=== PATIENT | female | born 1980 | race Hispanic/Latino ===

== ENCOUNTER 2017-10-30 02:43 | Inpatient (IN) | payer MEDICAID, OTHER ==
[~2017-10-30] VITALS: Ht 152.4 cm; Wt 68.0 kg
[2017-10-30] MEDS ORDERED: ACETAMINOPHEN EXTRA STRENGTH 500 MG TABLET ONE (02:55)
[2017-10-30 03:10] LABS: RAPID GROUP A STREP NEGATIVE (NEGATIVE)
[2017-10-30 03:11] LABS: BASOPHILS % (AUTO) 0.2 % (0.0-5.0); HEMATOCRIT 35.3 % (36-48); LYMPHOCYTES % (AUTO) 4.2 % (21.0-51.0); MEAN CORPUSCULAR HEMOGLOBIN 30.2 pg (27.0-33.0); MEAN CORPUSCULAR HGB CONC 34.8 g/dL (32.0-36.0); MEAN CORPUSCULAR VOLUME 86.9 fL (79-99); NEUTROPHILS % (AUTO) 90.6 % (40.0-77.0); PLATELET COUNT (AUTO) 242 K/uL (130-400); RED BLOOD CELL COUNT(AUTO) 4.06 MIL/uL (4.00-5.50); RED CELL DISTRIBUTION WIDTH 13.8 % (11.0-15.5); WHITE BLOOD COUNT (AUTO) 21.8 K/uL (4.8-10.8)
[2017-10-30] MEDS ORDERED: ISOVUE-370 50ML VIAL IV ONE (03:17)
[2017-10-30 03:19] LABS: CREATININE 0.6 mg/dL (0.5-1.5)
[2017-10-30 03:20] LABS: APPEARANCE,URINE Cloudy (CLEAR); BILIRUBIN,URINE Small (NEGATIVE); COLOR,URINE Dark Yellow (YELLOW); GLUCOSE, URINE (UA) Negative (NEGATIVE); KETONES,URINE >=160 mg/dL (NEGATIVE); LEUKOCYTE ESTERASE ,URINE Moderate (NEGATIVE); NITRATE,URINE Negative (NEGATIVE); OCCULT BLOOD,URINE Moderate (NEGATIVE); PROTEIN,URINE POS 1+ (NEGATIVE)
[2017-10-30 03:23] LABS: ALBUMIN 3.4 g/dL (3.5-5.0); HCG,QUAL RESULT NEGATIVE (NEGATIVE); TOTAL PROTEIN, SERUM 8.3 g/dL (6.0-8.3)
[2017-10-30] MEDS ORDERED: DEXAMETHASONE SOD PHOSPHATE 10MG/ML 1ML VIAL ONE (03:26)
[2017-10-30] MEDS ORDERED: CLINDAMYCIN 900 MG/D5% WATER 50 ML IV ONE (03:26)
[2017-10-30] MEDS ORDERED: POTASSIUM BICARB/CIT AC 25 MEQ TABLET.EFF ONE (03:27)
[2017-10-30 03:36] LABS: AMORPHOUS SEDIMENT,UR Many /LPF (None Seen); BACTERIA,URINE Moderate /HPF (None Seen); MUCUS,URINE Many LPF (None Seen); SQUAMOUS EPITHELIAL CELL,UR Many /HPF (0-2)
[2017-10-30] MEDS: METHYLPREDNISOLONE SOD SUCC 125MG/2ML VIAL IVP SCH ×2 (07:00→16:50)
[2017-10-30 09:35] VITALS: BP 100/72
[2017-10-30] MEDS: CLINDAMYCIN 600 MG/D5% WATER 50 ML IV SCH ×4 (10:30→23:25)
[2017-10-30] MEDS: KETOROLAC TROMETHAMINE 15MG/ML IV PRN ×2 (10:30→18:15)
[2017-10-30 12:51] VITALS: BP 86/64
[2017-10-30] MEDS: LEVOFLOXACIN 500 MG/D5W 100 ML 100 ML IV SCH (13:14)
[2017-10-30] MEDS ORDERED: HYDRALAZINE HCL 20 MG/ML VIAL IV PRN (14:30)
[2017-10-30] MEDS ORDERED: POTASSIUM CHLORIDE 20 MEQ ERTAB PO PRN (14:30)
[2017-10-30] MEDS ORDERED: POTASSIUM CHLORIDE 20MEQ/100ML 100 ML IV PRN (14:30)
[2017-10-30] MEDS ORDERED: LIDOCAINE HCL-MPF 1% 2ML VIAL IVP PRN (14:30)
[2017-10-30 15:40] VITALS: BP 114/82
[2017-10-30] MEDS: INSULIN HUMULIN R 100 UNIT/ML 3ML SQ SCH ×2 (16:30→21:00)
[2017-10-30] MEDS: POTASSIUM CHLORIDE 10% ELIXIR 20 MEQ/15 ML UDCUP PO PRN (17:10)
[2017-10-30] MEDS: SODIUM CHLORIDE 0.9% 1000ML 1,000 ML IV SCH (18:43)
[2017-10-30 19:45] VITALS: BP 98/65
[2017-10-30] MEDS ORDERED: ACETAMINOPHEN EXTRA STRENGTH 500 MG TABLET PO PRN (19:45)
[2017-10-30] MEDS: FAMOTIDINE 20MG TAB 20 MG TAB PO SCH (20:43)
[2017-10-30] MEDS ORDERED: ACETAMINOPHEN-CODEINE 300/30MG TAB PO ONE (20:45)
[2017-10-30 23:23] VITALS: BP 97/66
[2017-10-31] MEDS: KETOROLAC TROMETHAMINE 15MG/ML IV PRN (02:57)
[2017-10-31] MEDS: SODIUM CHLORIDE 0.9% 1000ML 1,000 ML IV SCH ×2 (02:58→22:24)
[2017-10-31 03:26] VITALS: BP 97/60
[2017-10-31 04:37] LABS: HEMATOCRIT 34.5 % (36-48); MEAN CORPUSCULAR HEMOGLOBIN 30.1 pg (27.0-33.0); MEAN CORPUSCULAR HGB CONC 34.3 g/dL (32.0-36.0); MEAN CORPUSCULAR VOLUME 87.9 fL (79-99); PLATELET COUNT (AUTO) 274 K/uL (130-400); RED BLOOD CELL COUNT(AUTO) 3.93 MIL/uL (4.00-5.50); RED CELL DISTRIBUTION WIDTH 14.2 % (11.0-15.5); WHITE BLOOD COUNT (AUTO) 14.7 K/uL (4.8-10.8)
[2017-10-31 05:02] LABS: CREATININE 0.6 mg/dL (0.5-1.5); MAGNESIUM 2.3 mg/dL (1.80-2.40); POTASSIUM 3.4 mmol/L (3.5-5.1)
[2017-10-31] MEDS: METHYLPREDNISOLONE SOD SUCC 125MG/2ML VIAL IVP SCH ×2 (05:17→18:32)
[2017-10-31] MEDS: CLINDAMYCIN 600 MG/D5% WATER 50 ML IV SCH ×4 (05:18→23:56)
[2017-10-31 07:31] VITALS: BP 105/64
[2017-10-31] MEDS: FAMOTIDINE 20MG TAB 20 MG TAB PO SCH ×2 (08:56→23:56)
[2017-10-31] MEDS: ENOXAPARIN SODIUM 40 MG/0.4 ML SYRINGE SQ SCH (09:01)
[2017-10-31 11:21] VITALS: BP 98/57
[2017-10-31] MEDS: INSULIN HUMULIN R 100 UNIT/ML 3ML SQ SCH ×3 (12:15→21:00)
[2017-10-31] MEDS: LEVOFLOXACIN 500 MG/D5W 100 ML 100 ML IV SCH (12:38)
[2017-10-31 15:55] VITALS: BP 97/68
[2017-10-31] MEDS: POTASSIUM CHLORIDE 10% ELIXIR 20 MEQ/15 ML UDCUP PO PRN (16:28)
[2017-10-31 19:46] VITALS: BP 122/78
[2017-10-31 23:31] VITALS: BP 98/72
[2017-11-01 03:58] VITALS: BP 98/56
[2017-11-01] MEDS: KETOROLAC TROMETHAMINE 15MG/ML IV PRN (03:59)
[2017-11-01 04:52] LABS: HEMATOCRIT 31.3 % (36-48); MEAN CORPUSCULAR HEMOGLOBIN 31.7 pg (27.0-33.0); MEAN CORPUSCULAR HGB CONC 35.8 g/dL (32.0-36.0); MEAN CORPUSCULAR VOLUME 88.6 fL (79-99); NUCLEATED RED BLOOD CELLS 0.1 % (0.0-0.19); PLATELET COUNT (AUTO) 262 K/uL (130-400); RED BLOOD CELL COUNT(AUTO) 3.53 MIL/uL (4.00-5.50); RED CELL DISTRIBUTION WIDTH 13.9 % (11.0-15.5); WHITE BLOOD COUNT (AUTO) 9.6 K/uL (4.8-10.8)
[2017-11-01 05:14] LABS: CREATININE 0.5 mg/dL (0.5-1.5); POTASSIUM 3.6 mmol/L (3.5-5.1)
[2017-11-01] MEDS: CLINDAMYCIN 600 MG/D5% WATER 50 ML IV SCH ×2 (05:54→12:00)
[2017-11-01 07:00] VITALS: BP 107/72
[2017-11-01] MEDS: INSULIN HUMULIN R 100 UNIT/ML 3ML SQ SCH ×2 (07:30→11:30)
[2017-11-01] MEDS ORDERED: METHYLPREDNISOLONE SOD SUCC 125MG/2ML VIAL IVP SCH (08:00)
[2017-11-01] MEDS: FAMOTIDINE 20MG TAB 20 MG TAB PO SCH (08:38)
[2017-11-01] MEDS: ENOXAPARIN SODIUM 40 MG/0.4 ML SYRINGE SQ SCH (08:39)
[2017-11-01 11:00] VITALS: BP 103/68
[2017-11-01] MEDS ORDERED: LEVO500T2 PO (11:27)
[2017-11-01] MEDS ORDERED: CLIN300C9 PO (11:27)
[2017-11-01] MEDS ORDERED: IBUP-2076 PO (11:27)
[2017-11-01] MEDS: LEVOFLOXACIN 500 MG/D5W 100 ML 100 ML IV SCH (12:00)
== END 2017-11-01 13:20 | disposition home or self-care (01) | DRG 872 ==
LOC: EDH 02:43 → OBSVTOIN 02:44 → EDHIP 02:44 → WSH 09:35
PROVIDERS: ADMIT Family Medicine; ATTEND Family Medicine
DX: A41.9 Sepsis, unspecified organism (principal); F10.10 Alcohol abuse, uncomplicated; N39.0 Urinary tract infection, site not specified; J35.1 Hypertrophy of tonsils; F17.210 Nicotine dependence, cigarettes, uncomplicated; J45.909 Unspecified asthma, uncomplicated; Z90.49 Acquired absence of other specified parts of digestive tract; Z82.49 Family history of ischemic heart disease and other diseases of the circulatory system; Z83.3 Family history of diabetes mellitus
CPT/HCPCS: 36415; 70491; 80048; 80053; 81001; 81025; 82948; 83605; 83735; 85025; 85027; 86308; 87040; 87070; 87076; 87077; 87088; 87186; 87804; 87880; J1100; J1650; J1815; J1885; J1956; J2930; J3490; J7030; Q9967

== ENCOUNTER 2020-01-04 20:52 | Emergency (ER) | payer OTHER, SELFPAY ==
[~2020-01-04 20:52] MED LIST: CLIN300C9 PO; IBUP-2076 PO; LEVO500T2 PO
[2020-01-04] MEDS ORDERED: KETOROLAC TROMETHAMINE 30MG/ML ONE (21:32)
[2020-01-04] MEDS ORDERED: DEXAMETHASONE SOD PHOSPHATE 10MG/ML 1ML VIAL ONE (21:32)
[2020-01-04] MEDS ORDERED: CEFTRIAXONE SODIUM 2 GM VIAL ONE (21:36)
[2020-01-04] MEDS ORDERED: ACETAMINOPHEN EXTRA STRENGTH 500 MG TABLET ONE (21:36)
[2020-01-04 22:09] LABS: BASOPHILS % (AUTO) 0.2 % (0.0-5.0); EOSINOPHILS % (AUTO) 0.6 % (0.0-8.0); HEMATOCRIT 32.5 % (36-48); LYMPHOCYTES % (AUTO) 5.2 % (21.0-51.0); MEAN CORPUSCULAR HGB CONC 32.6 g/dL (32.0-36.0); MEAN CORPUSCULAR VOLUME 82.7 fL (79-99); MONOCYTES % (AUTO) 3.5 % (3.0-13.0); NEUTROPHILS % (AUTO) 89.9 % (40.0-77.0); PLATELET COUNT (AUTO) 238 K/uL (130-400); RED BLOOD CELL COUNT(AUTO) 3.93 MIL/uL (4.00-5.50); RED CELL DISTRIBUTION WIDTH 15.3 % (11.0-15.5); WHITE BLOOD COUNT (AUTO) 17.6 K/uL (4.8-10.8)
[2020-01-04 22:25] LABS: INR 1.06 (0.85-1.15); PARTIAL THROMBOPLASTIN TIME 30.2 SEC (26.3-35.5); PROTHROMBIN TIME 11.4 SEC (9.6-11.6)
[2020-01-04 22:40] LABS: RAPID GROUP A STREP NEGATIVE (NEGATIVE)
[2020-01-04 22:47] LABS: CREATININE 0.7 mg/dL (0.5-1.5); POTASSIUM 3.3 mmol/L (3.5-5.1)
[2020-01-04 22:52] LABS: ALBUMIN 3.5 g/dL (3.5-5.0); BILIRUBIN,TOTAL 0.3 mg/dL (0.2-1.0); TOTAL PROTEIN, SERUM 7.7 g/dL (6.0-8.3)
[2020-01-04 22:59] LABS: APPEARANCE,URINE Clear (CLEAR); BILIRUBIN,URINE Negative (NEGATIVE); COLOR,URINE Yellow (YELLOW); GLUCOSE, URINE (UA) Negative (NEGATIVE); KETONES,URINE >=160 mg/dL (NEGATIVE); LEUKOCYTE ESTERASE ,URINE Negative (NEGATIVE); NITRATE,URINE Negative (NEGATIVE); OCCULT BLOOD,URINE Trace (NEGATIVE); PH,URINE 5.5 (5.0-8.0); PROTEIN,URINE Negative (NEGATIVE)
[2020-01-04 23:05] LABS: BACTERIA,URINE None Seen /HPF (None Seen); RBC,URINE 0-1 /HPF (0-1); WBC,URINE None Seen /HPF (0-1)
[2020-01-04 23:06] LABS: SQUAMOUS EPITHELIAL CELL,UR Few /HPF (0-2)
== END 2020-01-05 00:16 | disposition home or self-care (01) ==
LOC: EDH 20:52
DX: J02.9 Acute pharyngitis, unspecified (principal); R50.9 Fever, unspecified; Z20.828 Contact with and (suspected) exposure to other viral communicable diseases; J45.909 Unspecified asthma, uncomplicated
CPT/HCPCS: 36415; 71045; 80053; 81001; 83605; 85025; 85610; 85730; 87040; 87088; 87804 ×2; 87880; 96374; 96375; 99284; J0696; J1100; J1885; U0003

== ENCOUNTER 2020-11-07 18:45 | Emergency (ER) | payer OTHER ==
[~2020-11-07 18:45] MED LIST changes: +CLIN300C10 PO; -CLIN300C9 PO
== END 2020-11-07 20:43 | disposition home or self-care (01) ==
LOC: EDH 18:45
DX: S93.601A Unspecified sprain of right foot, initial encounter (principal); S90.31XA Contusion of right foot, initial encounter; J45.909 Unspecified asthma, uncomplicated; Z98.890 Other specified postprocedural states; W01.0XXA Fall on same level from slipping, tripping and stumbling without subsequent striking against object, initial encounter; Y93.01 Activity, walking, marching and hiking; Y92.89 Other specified places as the place of occurrence of the external cause; Y99.8 Other external cause status
CPT/HCPCS: 73600; 73630

== ENCOUNTER 2023-06-24 23:15 | Inpatient (IN) | payer OTHER ==
[~2023-06-24] VITALS: Ht 152.4 cm; Wt 67.5 kg
[~2023-06-24 23:15] MED LIST changes: +CLIN-141 PO; -CLIN300C10 PO
[2023-06-24] MEDS ORDERED: IPRATROPIUM/ALBUTEROL SULFATE 3 ML SOLUTION IH ONE ×2 (23:21→23:30)
[2023-06-24] MEDS ORDERED: SOLU-MEDROL 125MG VIAL ONE (23:21)
[2023-06-24] MEDS ORDERED: MAGNESIUM 2GM PREMIX 50ML 50 ML IV ONE (23:22)
[2023-06-24] MEDS ORDERED: SOLU-MEDROL 125MG VIAL IVP ONE (23:30)
[2023-06-24] MEDS ORDERED: MAGNESIUM 2GM PREMIX 50ML 50 ML IV SCH (23:30)
[2023-06-24 23:36] VITALS: PULSE 122; RESP 30
[2023-06-24 23:48] LABS: BASOPHILS # (AUTO) 0.02 K/uL (0.00-0.20); BASOPHILS % (AUTO) 0.3 % (0.0-5.0); HEMATOCRIT 30.9 % (36-48); IMMATURE GRANULOCYTE ABSOLUTE 0.03 K/uL (0-1); LYMPHOCYTES # (AUTO) 1.2 K/uL (1.0-4.8); MEAN CORPUSCULAR HEMOGLOBIN 23.6 pg (27.0-33.0); MEAN CORPUSCULAR HGB CONC 31.4 g/dL (32.0-36.0); MEAN CORPUSCULAR VOLUME 75.2 fL (79-99); MONOCYTES # (AUTO) 0.6 K/uL (0.1-1.0); MONOCYTES % (AUTO) 8.6 % (3.0-13.0); NEUTROPHILS # (AUTO) 4.6 K/uL (1.8-7.7); NEUTROPHILS % (AUTO) 69.6 % (40.0-77.0); PLATELET COUNT (AUTO) 299 K/uL (130-400); RED BLOOD CELL COUNT(AUTO) 4.11 MIL/uL (4.00-5.50); RED CELL DISTRIBUTION WIDTH 18.6 % (11.0-15.5); WHITE BLOOD COUNT (AUTO) 6.7 K/uL (4.8-10.8)
[2023-06-25] VITALS (14 sets, daily range): BP systolic 116–137; BP diastolic 70–92; PULSE 70–113; RESP 18–22; O2SAT 96–100
[2023-06-25 00:03] LABS: CREATININE 0.6 mg/dL (0.5-1.5); POTASSIUM 3.5 mmol/L (3.5-5.1)
[2023-06-25 00:07] LABS: ALBUMIN 3.3 g/dL (3.5-5.0); BILIRUBIN,TOTAL 0.1 mg/dL (0.2-1.0); MAGNESIUM 1.8 mg/dL (1.80-2.40)
[2023-06-25] MEDS ORDERED: IPRATROPIUM/ALBUTEROL SULFATE 3 ML SOLUTION IH ONE ×2 (00:30)
[2023-06-25] MEDS ORDERED: ACETAMINOPHEN 325 MG TAB PO PRN (02:30)
[2023-06-25] MEDS ORDERED: MAGNESIUM 2GM PREMIX 50ML 50 ML IV PRN (02:30)
[2023-06-25] MEDS ORDERED: POTASSIUM CHLORIDE 10% ELIXIR 20 MEQ/15 ML UDCUP PO PRN (02:30)
[2023-06-25] MEDS ORDERED: ONDANSETRON 4MG INJ IV PRN (02:30)
[2023-06-25] MEDS ORDERED: KCL 20 MEQ ERTAB PO PRN (02:30)
[2023-06-25] MEDS ORDERED: HYDROXYZINE 25 MG TABLET PO PRN (02:30)
[2023-06-25] MEDS ORDERED: GUAIFENESIN-DM 200/20 MG 10 ML PO PRN (02:30)
[2023-06-25] MEDS ORDERED: POTASSIUM CHLORIDE 20MEQ/100ML 100 ML IV PRN (02:30)
[2023-06-25] MEDS: NITROGLYCERIN 1GM OINT 1 INCH/1GM TD SCH ×3 (03:00→18:39)
[2023-06-25] MEDS: SOLU-MEDROL 40MG VIAL IVP SCH ×3 (03:57→18:38)
[2023-06-25 05:41] LABS: BASOPHILS # (AUTO) 0.01 K/uL (0.00-0.20); BASOPHILS % (AUTO) 0.1 % (0.0-5.0); HEMATOCRIT 30.9 % (36-48); IMMATURE GRANULOCYTE ABSOLUTE 0.04 K/uL (0-1); LYMPHOCYTES # (AUTO) 0.3 K/uL (1.0-4.8); LYMPHOCYTES % (AUTO) 3.9 % (21.0-51.0); MEAN CORPUSCULAR HEMOGLOBIN 23.5 pg (27.0-33.0); MEAN CORPUSCULAR HGB CONC 31.1 g/dL (32.0-36.0); MEAN CORPUSCULAR VOLUME 75.6 fL (79-99); MONOCYTES # (AUTO) 0.1 K/uL (0.1-1.0); MONOCYTES % (AUTO) 0.8 % (3.0-13.0); NEUTROPHILS % (AUTO) 94.7 % (40.0-77.0); PLATELET COUNT (AUTO) 317 K/uL (130-400); RED BLOOD CELL COUNT(AUTO) 4.09 MIL/uL (4.00-5.50); RED CELL DISTRIBUTION WIDTH 18.7 % (11.0-15.5); WHITE BLOOD COUNT (AUTO) 8.5 K/uL (4.8-10.8)
[2023-06-25 05:59] LABS: WBC MORPHOLOGY CONSISTENT W/DIFF
[2023-06-25 06:00] LABS: ALBUMIN 3.3 g/dL (3.5-5.0); BILIRUBIN,TOTAL 0.1 mg/dL (0.2-1.0); CREATININE 0.8 mg/dL (0.5-1.5); POTASSIUM 3.8 mmol/L (3.5-5.1); TOTAL PROTEIN, SERUM 7.8 g/dL (6.0-8.3)
[2023-06-25] MEDS: IPRATROPIUM/ALBUTEROL SULFATE 3 ML SOLUTION IH SCH ×5 (06:31→22:17)
[2023-06-25] MEDS: FAMOTIDINE 20MG VIAL IV SCH ×2 (08:29→19:54)
[2023-06-25] MEDS: ASPIRIN 81 MG EC TAB PO SCH (08:30)
[2023-06-25] MEDS: ACETAMINOPHEN 325 MG TAB PO PRN (08:39)
[2023-06-25] MEDS: LORATADINE 10 MG TABLET PO SCH (12:04)
[2023-06-25] MEDS: FLUTICASONE PROPIONATE 50MCG/SPRAY 16 GM BOTTLE EN SCH (18:46)
[2023-06-25] MEDS: MONTELUKAST SODIUM 10 MG TAB PO SCH (19:54)
[2023-06-26] VITALS (17 sets, daily range): BP systolic 110–117; BP diastolic 58–76; PULSE 82–119; RESP 17–21; O2SAT 93–98
[2023-06-26] MEDS ORDERED: METOPROLOL TARTRATE 1 MG/ML 5ML VIAL IV ONE (01:30)
[2023-06-26] MEDS: ACETAMINOPHEN 325 MG TAB PO PRN ×3 (01:30→12:30)
[2023-06-26] MEDS: IPRATROPIUM 0.5 MG/2.5 ML INH IH SCH ×6 (02:03→23:32)
[2023-06-26] MEDS: NITROGLYCERIN 1GM OINT 1 INCH/1GM TD SCH ×3 (02:33→20:01)
[2023-06-26] MEDS: SOLU-MEDROL 40MG VIAL IVP SCH ×3 (02:33→18:56)
[2023-06-26] MEDS: FAMOTIDINE 20MG VIAL IV SCH ×2 (09:18→20:00)
[2023-06-26] MEDS: ASPIRIN 81 MG EC TAB PO SCH (09:18)
[2023-06-26] MEDS: FLUTICASONE PROPIONATE 50MCG/SPRAY 16 GM BOTTLE EN SCH (09:18)
[2023-06-26] MEDS: LORATADINE 10 MG TABLET PO SCH (09:25)
[2023-06-26] MEDS ORDERED: BUDESONIDE 0.25 MG/2 ML INH IH ONE (18:32)
[2023-06-26] MEDS: BUDESONIDE 0.5 MG/2 ML INH IH SCH (18:38)
[2023-06-26] MEDS: ACETYLCYSTEINE 10% 100MG/ML 4ML VIAL IH SCH ×2 (18:39→23:32)
[2023-06-26] MEDS: MONTELUKAST SODIUM 10 MG TAB PO SCH (20:00)
[2023-06-27] VITALS (13 sets, daily range): BP systolic 115–135; BP diastolic 74–89; PULSE 81–122; RESP 17–22; O2SAT 95–98
[2023-06-27] MEDS: IPRATROPIUM 0.5 MG/2.5 ML INH IH SCH ×3 (02:13→10:07)
[2023-06-27] MEDS: SOLU-MEDROL 40MG VIAL IVP SCH ×2 (02:30→11:25)
[2023-06-27] MEDS: NITROGLYCERIN 1GM OINT 1 INCH/1GM TD SCH (03:03)
[2023-06-27] MEDS: ACETYLCYSTEINE 10% 100MG/ML 4ML VIAL IH SCH ×2 (06:15→10:07)
[2023-06-27] MEDS: BUDESONIDE 0.5 MG/2 ML INH IH SCH (06:48)
[2023-06-27] MEDS ORDERED: Fluticasone Propionate EN (08:18)
[2023-06-27] MEDS ORDERED: MONT-46 PO (08:18)
[2023-06-27] MEDS ORDERED: BUDE0.5A3 IH (08:18)
[2023-06-27] MEDS ORDERED: METH4TAB3 PO (08:18)
[2023-06-27] MEDS: ASPIRIN 81 MG EC TAB PO SCH (10:00)
[2023-06-27] MEDS: LORATADINE 10 MG TABLET PO SCH (10:00)
[2023-06-27] MEDS: FAMOTIDINE 20MG VIAL IV SCH (10:00)
== END 2023-06-27 12:00 | disposition home or self-care (01) | DRG 202 ==
LOC: EDH 23:15 → EDHIP 06-25 02:26 → 4DH 06-25 04:28
PROVIDERS: ADMIT Internal Medicine; ATTEND Internal Medicine
DX: J45.901 Unspecified asthma with (acute) exacerbation (principal); J96.01 Acute respiratory failure with hypoxia; F41.9 Anxiety disorder, unspecified; M94.0 Chondrocostal junction syndrome [Tietze]; J45.902 Unspecified asthma with status asthmaticus; F17.210 Nicotine dependence, cigarettes, uncomplicated; Z82.49 Family history of ischemic heart disease and other diseases of the circulatory system; Z83.3 Family history of diabetes mellitus; Z90.49 Acquired absence of other specified parts of digestive tract
CPT/HCPCS: 36415; 71045; 80053; 83605; 83735; 84484; 85025; 87040; 94640; 94664; 94668; 94760; G0378; J2920; J2930; J3475; J3490; J7608